=== PATIENT | male | born 1970 | race Caucasian/White ===

== ENCOUNTER → 2016-08-04 | Outpatient (CLI) | payer MEDICARE, OTHER ==
--- NOTE | 2016-08-04 15:05 | MR ---
EXAMINATION TYPE: MR angio head wo con DATE OF EXAM: 08/04/2016 2:31 PM COMPARISON: NONE HISTORY: Syncope TECHNIQUE: Time of flight images focusing on the [place] were performed without contrast. FINDINGS: The internal carotid arteries bifurcate normally into A1 and M1 segments. The anterior comm unicating artery is not identified. On source images very faint posterior communicating arteries may be present. Middle cerebral artery branches appear unremarkable. Vertebral basilar system appears normal. The posterior cerebral vasculature is unremarkable. 3-D reconstructed images performed separately by the technologist are reviewed. Rotating images are r eviewed. No suspicious aneurysms are evident. IMPRESSION: Normal MRA [place].
--- NOTE | 2016-08-04 15:31 | MR ---
EXAMINATION TYPE: MR iac wo/w con DATE OF EXAM: 08/04/2016 2:50 PM COMPARISON: MRI brain 09/15/2015 HISTORY: syncope CONTRAST: Performed utilizing intravenous MultiHance gadolinium contrast. TECHNIQUE: Multiplanar, multiecho imaging on a 3.0 Evelyn magnet is performed through the brain. Atte ntion is paid to the internal auditory canals with thin section imaging. Postcontrast imaging is per formed through the internal auditory canals. FINDINGS: Craniovertebral junction is normal. The pituitary is normal. Diffusion-weighted imaging is performed. No suspicious hyperintensity is present to suggest an acute intracranial infarct or acute ischemic area. Signal within the brain has scattered areas of hyperin tensity which are non-specific but could be related to microvascular ischemic changes. Thin section imaging is performed through the internal auditory canals and cerebellar pontine angles. No cerebellar pontine angle masses are evident. The internal auditory canals appear normal without expansion or erosion. Note is made of fluid within inferior left and right mastoid air cells. Correl ate for mastoiditis. Small air-fluid levels appear to be within the maxillary sinuses. There is mucos al thickening through ethmoid air cells and within the frontal sinuses. Correlate for sinusitis. Following contrast administration no abnormal enhancement is evident. No enhancement within the inter nal auditory canals. Note is made of soft tissue swelling over the right parietal vertex small hemorrhage and subgaleal re gion may be present. IMPRESSIONS: 1. Normal internal auditory canals. 2. Soft tissue swelling right parietal vertex. 3. Correlate for pansinusitis. Some mild bilateral mastoiditis may be present.
== END | disposition home or self-care (01) ==
LOC: RADMRIMAIN 13:45
PROVIDERS: ATTEND Psychiatry & Neurology Neurology
DX: R55 Syncope and collapse (principal)
CPT/HCPCS: 70544; 70553; A9577

== ENCOUNTER 2016-09-29 20:56 | Emergency (ER) | payer MEDICARE, OTHER ==
[2016-09-29 21:03] VITALS: TEMP 98.6
[2016-09-29] MEDS ORDERED: SODIUM CHLORIDE 0.9% 1,000 ML IV STA ×2 (21:46)
[2016-09-29] MEDS ORDERED: ONDANSETRON 4 MG/2 ML VIAL IVP STA (21:46)
[2016-09-29] MEDS ORDERED: MORPHINE SULFATE 4 MG/ML SYRINGE IV STA (21:46)
[2016-09-29] MEDS ORDERED: DIAZEPAM 5 MG/ML 2 ML SYRINGE IVP STA (21:46)
--- NOTE | 2016-09-29 21:49 | ED ---
General Adult HPI - General Chief complaint: Dizziness Stated complaint: Dizzy/Ear Pain Time Seen by Provider: 09/29/16 21:31 Source: patient, RN notes reviewed, old records reviewed Mode of arrival: wheelchair Limitations: no limitations - History of Present Illness Initial comments: This is a 45-year-old male the ER for evaluation of nonspecific complaint. Patient coming in with multiple complaints today. Patient's is complaining of all-around head spinning, dizziness and ear pain. Patient's history of heart disease, history of tumor removed. Recent start on blood pressure medication for symptoms as he thought these symptoms which include occasional syncope or possibly related to his blood pressure. Then occurred again tonight and causing patient to the emergency room. An hour and a half ago started feeling dizzy at this time no chest pain. No nausea vomiting or diarrhea no abdominal pain. No syncopal event today. No other change in medications. Patient again has been the ER and been evaluated multiple times for similar symptoms before. Patient is very anxious, stating that this is an issue has been trying to figure out he follows his blood pressure but that apparently is not the case is urinary has been taking the medication he still has same symptoms - Related Data Home Medications Medication Instructions Recorded Confirmed HYDROcodone/APAP 10-325MG [[place] 1 tab PO TID PRN 12/23/14 09/29/16 10] Propranolol [Inderal] 20 mg PO BID 05/27/15 09/29/16 Albuterol Sulfate [Proair Hfa] 1 - 2 puff INHALATION RT-Q6H PRN 06/11/15 Aspirin 81 mg PO DAILY 06/11/15 09/29/16 Atorvastatin [Lipitor] 10 mg PO DAILY 09/29/16 09/29/16 Ranitidine HCl [Zantac] 75 mg PO DAILY 09/29/16 09/29/16 oxyCODONE HCL [OxyCONTIN] 40 mg PO BID 09/29/16 09/29/16 Allergies Allergy/AdvReac Type Severity Reaction Status Date / Time ibuprofen Allergy Swelling Verified 09/29/16 21:29 Review of Systems ROS Statement: Those systems with pertinent positive or pertinent negative responses have been documented in the HPI. ROS Other: All systems not noted in ROS Statement are negative. 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, ELECTRICUTED X 2 History of Any Multi-Drug Resistant Organisms: None Reported Past Surgical History: Adenoidectomy, Cardiac Ablation, Ear Surgery, Orthopedic Surgery, Tonsillectomy Past Anesthesia/Blood Transfusion Reactions: No Reported Reaction Additional Past Anesthesia/Blood Transfusion Reaction / Comment(s): NEVER HAS HAD BLOOD TRANSFUSION Past Psychological History: Anxiety Smoking Status: Current every day smoker Past Alcohol Use History: Rare Additional Past Alcohol Use History / Comment(s): STARTED 1992 05 PPD Past Drug Use History: None Reported - Past Family History Sister(s) Family Medical History: No Reported History Mother Family Medical History: Cancer Additional Family Medical History / Comment(s): SKIN General Exam Limitations: no limitations General appearance: alert, in no apparent distress Head exam: Present: atraumatic, normocephalic, normal inspection Eye exam: Present: normal appearance, PERRL, EOMI. Absent: scleral icterus, conjunctival injection, periorbital swelling ENT exam: Present: normal exam, mucous membranes moist Neck exam: Present: normal inspection. Absent: tenderness, meningismus, lymphadenopathy Respiratory exam: Present: normal lung sounds bilaterally. Absent: respiratory distress, wheezes, rales, rhonchi, stridor Cardiovascular Exam: Present: regular rate, normal rhythm, normal heart sounds. Absent: systolic murmur, diastolic murmur, rubs, gallop, clicks GI/Abdominal exam: Present: soft, normal bowel sounds. Absent: distended, tenderness, guarding, rebound, rigid Extremities exam: Present: normal inspection, full ROM, normal capillary refill. Absent: tenderness, pedal edema, joint swelling, calf tenderness Back exam: Present: normal inspection Neurological exam: Present: alert, oriented X3, CN II-XII intact Psychiatric exam: Present: normal affect, normal mood Skin exam: Present: warm, dry, intact, normal color. Absent: rash Course Vital Signs 09/29/16 09/29/16 21:00 21:35 Temperature 98.6 F Pulse Rate 69 Pulse Rate [ 79 Sitting] Pulse Rate [ 80 Standing Radial ] Pulse Rate [ 68 Supine Radial] Respiratory 20 Rate Blood Pressure 124/78 Blood Pressure 107/78 [Right Arm Sitting] Blood Pressure 105/80 [Right Arm Standing] Blood Pressure 116/64 [Right Arm Supine] O2 Sat by Pulse 99 Oximetry - Reevaluation(s) Reevaluation #1: 09/29/16 23:24 Patient is resting comfortably, no chest pain shortness of breath. No headache. Symptoms are improved, able to ambulate without difficulty, states would like to be discharged home EKG Findings - EKG Comments: EKG Findings:: EKG shows normal sinus rhythm of 61, [place] 136, QRS 88, QTc 386 Medical Decision Making - Medical Decision Making 42 female DF for evaluation. Patient coming in for evaluation of dizziness, nonspecific dizziness, acute on chronic issue. Patient urged to decrease blood pressure medication and half, patient's blood pressure and low at this time. Heart rate In the 60s, blood pressure 80/50. Patient will be discharged home - Lab Data Result diagrams: 09/29/16 21:55 09/29/16 21:55 Lab Results 09/29/16 09/29/16 09/29/16 Range/Units 21:55 21:55 21:55 WBC 9.5 (3.8-10.6) k/uL RBC 4.78 (4.30-5.90) m/uL Hgb 15.3 (13.0-17.5) gm/dL Hct 44.6 (39.0-53.0) % MCV 93.4 (80.0-100.0) fL MCH 32.0 (25.0-35.0) pg MCHC 34.3 (31.0-37.0) g/dL RDW 11.9 (11.5-15.5) % Plt Count 172 (150-450) k/uL Neutrophils % 66 % Lymphocytes % 23 % Monocytes % 6 % Eosinophils % 3 % Basophils % 1 % Neutrophils # 6.3 (1.3-7.7) k/uL Lymphocytes # 2.2 (1.0-4.8) k/uL Monocytes # 0.5 (0-1.0) k/uL Eosinophils # 0.3 (0-0.7) k/uL Basophils # 0.1 (0-0.2) k/uL PT (9.0-12.0) sec INR (<1.1) APTT (22.0-30.0) sec Sodium 142 (137-145) mmol/L Potassium 4.2 (3.5-5.1) mmol/L Chloride 106 (98-107) mmol/L Carbon Dioxide 26 (22-30) mmol/L Anion Gap 10 mmol/L BUN 13 (9-20) mg/dL Creatinine 1.20 (0.66-1.25) mg/dL Est GFR (MDRD) Af Amer >60 (>60 ml/min/1.73 sqM) Est GFR (MDRD) Non-Af >60 (>60 ml/min/1.73 sqM) Glucose 90 (74-99) mg/dL Calcium 9.5 (8.4-10.2) mg/dL Phosphorus 3.8 (2.5-4.5) mg/dL Magnesium 2.0 (1.6-2.3) mg/dL Total Bilirubin 0.5 (0.2-1.3) mg/dL AST 24 (17-59) U/L ALT 37 (21-72) U/L Alkaline Phosphatase 65 (38-126) U/L Total Creatine Kinase 149 (55-170) U/L CK-MB (CK-2) 0.7 (0.0-2.4) ng/mL CK-MB (CK-2) Rel Index 0.5 Troponin I <0.012 (0.000-0.034) ng/mL Total Protein 7.0 (6.3-8.2) g/dL Albumin 4.5 (3.5-5.0) g/dL Urine Color Urine Appearance (Clear) Urine pH (5.0-8.0) Ur Specific [place] (1.001-1.035) Urine Protein (Negative) Urine Glucose (UA) (Negative) Urine Ketones (Negative) Urine Blood (Negative) Urine Nitrite (Negative) Urine Bilirubin (Negative) Urine Urobilinogen (<2.0) mg/dL Ur Leukocyte Esterase (Negative) 09/29/16 09/29/16 Range/Units 21:55 21:55 WBC (3.8-10.6) k/uL RBC (4.30-5.90) m/uL Hgb (13.0-17.5) gm/dL Hct (39.0-53.0) % MCV (80.0-100.0) fL MCH (25.0-35.0) pg MCHC (31.0-37.0) g/dL RDW (11.5-15.5) % Plt Count (150-450) k/uL Neutrophils % % Lymphocytes % % Monocytes % % Eosinophils % % Basophils % % Neutrophils # (1.3-7.7) k/uL Lymphocytes # (1.0-4.8) k/uL Monocytes # (0-1.0) k/uL Eosinophils # (0-0.7) k/uL Basophils # (0-0.2) k/uL PT 11.3 (9.0-12.0) sec INR 1.1 (<1.1) APTT 26.4 (22.0-30.0) sec Sodium (137-145) mmol/L Potassium (3.5-5.1) mmol/L Chloride (98-107) mmol/L Carbon Dioxide (22-30) mmol/L Anion Gap mmol/L BUN (9-20) mg/dL Creatinine (0.66-1.25) mg/dL Est GFR (MDRD) Af Amer (>60 ml/min/1.73 sqM) Est GFR (MDRD) Non-Af (>60 ml/min/1.73 sqM) Glucose (74-99) mg/dL Calcium (8.4-10.2) mg/dL Phosphorus (2.5-4.5) mg/dL Magnesium (1.6-2.3) mg/dL Total Bilirubin (0.2-1.3) mg/dL AST (17-59) U/L ALT (21-72) U/L Alkaline Phosphatase (38-126) U/L Total Creatine Kinase (55-170) U/L CK-MB (CK-2) (0.0-2.4) ng/mL CK-MB (CK-2) Rel Index Troponin I (0.000-0.034) ng/mL Total Protein (6.3-8.2) g/dL Albumin (3.5-5.0) g/dL Urine Color Colorless Urine Appearance Clear (Clear) Urine pH 6.0 (5.0-8.0) Ur Specific [place] 1.003 (1.001-1.035) Urine Protein Negative (Negative) Urine Glucose (UA) Negative (Negative) Urine Ketones Negative (Negative) Urine Blood Negative (Negative) Urine Nitrite Negative (Negative) Urine Bilirubin Negative (Negative) Urine Urobilinogen <2.0 (<2.0) mg/dL Ur Leukocyte Esterase Negative (Negative) Disposition Clinical Impression: Dehydration, Dizziness Disposition: HOME SELF-CARE Condition: Good Instructions: Dizziness (ED) Referrals: Edgardo Garcia MD [Primary Care Provider] - 1-2 days
[2016-09-29 22:19] LABS: Basophils # (A) 0.1 k/uL (0-0.2); Basophils % (A) 1 %; CH 32.5; Eosinophils # (A) 0.3 k/uL (0-0.7); Eosinophils % (A) 3 %; HCT 44.6 % (39.0-53.0); HDW 2.44; HGB 15.3 gm/dL (13.0-17.5); Luc % (Auto) 2; Lymphocytes # (A) 2.2 k/uL (1.0-4.8); Lymphocytes % (A) 23 %; MCHC 34.3 g/dL (31.0-37.0); MCV 93.4 fL (80.0-100.0); Mean Platelet Volume 6.5; Monocytes # (A) 0.5 k/uL (0-1.0); Monocytes % (A) 6 %; Neutrophils # (A) 6.3 k/uL (1.3-7.7); Neutrophils % (A) 66 %; RBC 4.78 m/uL (4.30-5.90); RDW 11.9 % (11.5-15.5); WBC 9.5 k/uL (3.8-10.6); WBC (Perox) 9.14
[2016-09-29 22:22] LABS: Appearance,Urine Clear (Clear); Bilirubin,Urine Negative (Negative); Glucose,Urine (UA) Negative (Negative); Ketones,Urine Negative (Negative); Leukocyte Esterase,Urine Negative (Negative); Nitrite,Urine Negative (Negative); Protein,Urine Negative (Negative); Specific Gravity,Urine 1.003 (1.001-1.035); UA Billing (MACRO vs. MICRO) CHEM; Urobilinogen,Urine <2.0 mg/dL (<2.0)
[2016-09-29 22:25] LABS: INR 1.1 (<1.1); Partial Thromboplastin Time 26.4 sec (22.0-30.0); Prothrombin Time 11.3 sec (9.0-12.0)
[2016-09-29 22:38] LABS: ALT 37 U/L (21-72); AST 24 U/L (17-59); Alkaline Phosphatase 65 U/L (38-126); Anion Gap 10 mmol/L; Blood Urea Nitrogen 13 mg/dL (9-20); Calcium 9.5 mg/dL (8.4-10.2); Carbon Dioxide 26 mmol/L (22-30); Chloride 106 mmol/L (98-107); Glucose 90 mg/dL (74-99); Non-African American GFR(MDRD) >60 (>60 ml/min/1.73 sqM); Phosphorous 3.8 mg/dL (2.5-4.5); Potassium 4.2 mmol/L (3.5-5.1); Sodium 142 mmol/L (137-145); Total Bilirubin 0.5 mg/dL (0.2-1.3)
[2016-09-29 22:51] LABS: Creatine Kinase 149 U/L (55-170)
[2016-09-29 23:04] LABS: Creatine Kinase MB 0.7 ng/mL (0.0-2.4); Troponin I <0.012 ng/mL (0.000-0.034)
[2016-09-29 23:49] VITALS: BP 113/71; PULSE 72; RESP 18
== END 2016-09-29 23:49 | disposition home or self-care (01) ==
LOC: EC 20:56
DX: E86.0 Dehydration (principal); R42 Dizziness and giddiness; H92.09 Otalgia, unspecified ear; F41.9 Anxiety disorder, unspecified; I95.9 Hypotension, unspecified; E78.5 Hyperlipidemia, unspecified; M19.90 Unspecified osteoarthritis, unspecified site; F17.200 Nicotine dependence, unspecified, uncomplicated; Z79.891 Long term (current) use of opiate analgesic; Z79.82 Long term (current) use of aspirin; Z79.899 Other long term (current) drug therapy
CPT/HCPCS: 36415; 93005; 80053; 82550; 82553; 83735; 84100; 84484; 85025; 85610; 85730; 81003; 99284; 96374; 96375 ×2; 96361 ×2; J2270; J3360; J2405

== ENCOUNTER → 2016-10-27 | Outpatient (CLI) | payer MEDICARE, OTHER ==
--- NOTE | 2016-10-27 20:17 | CT ---
EXAMINATION TYPE: CT sinus wo con DATE OF EXAM: 10/27/2016 COMPARISON: NONE HISTORY: Dizziness. CT DLP: 680.1 mGycm. Automated Exposure Control for Dose Reduction was Utilized. TECHNIQUE: CT scan of the sinuses is performed without contrast, axial images are obtained, coronal r eformatted images are also reviewed. FINDINGS: There is mild mucosal thickening in the ethmoid air cells. There is no sign of blowout frac ture. Orbital margins are intact. Maxilla is intact. There is bilateral patency of the ostiomeatal co mplex. Nasal septum deviates to the left side. There is mild mucosal thickening in the frontal sinuse s. Globes are symmetric. IMPRESSION There is mild ethmoid and frontal sinusitis. There is a scalp lipoma noted in the right parietal vera on..
== END | disposition home or self-care (01) ==
LOC: RADCTMAIN 19:30
PROVIDERS: ATTEND Otolaryngology
DX: J32.1 Chronic frontal sinusitis (principal); J32.2 Chronic ethmoidal sinusitis
CPT/HCPCS: 70486

== ENCOUNTER 2017-02-01 19:24 | Emergency (ER) | payer MEDICARE, OTHER ==
[2017-02-01 19:34] VITALS: RESP 18
[2017-02-01] MEDS ORDERED: SODIUM CHLORIDE 0.9% 2,000 ML IV STA (20:21)
--- NOTE | 2017-02-01 20:36 | ED ---
Abdominal Pain HPI - General Chief Complaint: Abdominal Pain Stated Complaint: Abdominal pain/chest congestion/headache Time Seen by Provider: 02/01/17 20:00 Source: patient Mode of arrival: ambulatory Limitations: no limitations - History of Present Illness Initial Comments: Patient presents with epigastric and right upper quadrant abdominal pain. Patient states symptoms have been ongoing for "months". Patient states she sees primary care physician Dr. Xie, but he has not followed up with him recently regarding the symptoms. Patient does note that he saw a family practice physician that his mother referred him to a Family physician, Dr. Jl Vora, today for the same symptoms. Patient states she had blood work done, and an ultrasound ordered for next week, however patient states he cannot wait until next week for results. He states his brother was recently diagnosed with pancreatic CA, and states he has the same symptoms. Patient states she's been having diarrhea for 7 months. States he also has mild shortness of breath & lightheadedness. States urine is sometimes dark, sometimes clear, no other urinary symptoms. Patient states she's had mildly decreased appetite. Patient states she is on blood pressure medications, propranolol. Denies history of abdominal surgeries. Denies nausea, vomiting, fevers, chills. MD Complaint: abdominal pain Location: RUQ, epigastric Radiation: none Migration to: no migration Severity: moderate Quality: fullness Consistency: intermittent Improves With: nothing Worsens With: nothing Associated Symptoms: diarrhea - Related Data Home Medications Medication Instructions Recorded Confirmed HYDROcodone/APAP 10-325MG [[place] 1 tab PO Q6H PRN 12/23/14 02/01/17 10] Atorvastatin [Lipitor] 10 mg PO DAILY 09/29/16 02/01/17 Ranitidine HCl [Zantac] 75 mg PO DAILY 09/29/16 02/01/17 Propranolol [Inderal] 20 mg PO BID 02/01/17 02/01/17 oxyCODONE HCL [OxyCONTIN] 20 mg PO Q12HR 02/01/17 02/01/17 Allergies Allergy/AdvReac Type Severity Reaction Status Date / Time ibuprofen Allergy Swelling, Verified 02/01/17 19:42 ITCHING OF THROAT AND DIFFICULTY SWALLOWING Review of Systems ROS Statement: Those systems with pertinent positive or pertinent negative responses have been documented in the HPI. ROS Other: All systems not noted in ROS Statement are negative. Constitutional: Denies: fever, chills, weakness Eyes: Denies: vision change ENT: Denies: ear pain, throat pain, congestion Respiratory: Reports: dyspnea. Denies: cough, wheezes Cardiovascular: Denies: chest pain, palpitations, dyspnea on exertion, edema, syncope Endocrine: Denies: fatigue Gastrointestinal: Reports: abdominal pain, diarrhea. 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 LT KNEE SX X 3. LT ANKLE SX. TUBE INSERTED LT EAR Past Anesthesia/Blood Transfusion Reactions: No Reported Reaction Additional Past Anesthesia/Blood Transfusion Reaction / Comment(s): NEVER HAS HAD BLOOD TRANSFUSION Past Psychological History: Anxiety Smoking Status: Current every day smoker - Past Family History Sister(s) Family Medical History: No Reported History Mother Family Medical History: Cancer Additional Family Medical History / Comment(s): SKIN General Exam - General Exam Comments Initial Comments: Ambulatory to the bathroom without difficulty. Sitting on side of bed. Patient appears moderately anxious. Patient tearful during exam. However he does not appear in pain. Not ill appearing Limitations: no limitations General appearance: alert, anxious Head exam: Present: atraumatic, normocephalic Eye exam: Present: normal appearance, PERRL, EOMI ENT exam: Present: mucous membranes moist Neck exam: Present: normal inspection. Absent: tenderness Respiratory exam: Present: normal lung sounds bilaterally. Absent: respiratory distress, wheezes, rales, rhonchi, stridor Cardiovascular Exam: Present: regular rate, normal rhythm GI/Abdominal exam: Present: soft, other (Minimal epigastric and right upper quadrant tenderness to palpation). Absent: distended, guarding, rebound, rigid , mass Extremities exam: Present: normal inspection Neurological exam: Present: alert, oriented X3 Psychiatric exam: Present: anxious, other (Tearful) Skin exam: Present: warm, dry, intact, normal color. Absent: rash Course Vital Signs 02/01/17 02/01/17 02/01/17 19:31 20:50 21:48 Temperature 98.5 F 97.6 F Pulse Rate 63 69 Respiratory 18 18 Rate Blood Pressure 141/79 124/67 O2 Sat by Pulse 99 100 Oximetry Medical Decision Making - Medical Decision Making Patient declines pain medications initially. LFTs and other lab tests normal. Chest x-ray and KUB show no acute process. I was notified by the RN the patient left and signed out AMA due to a family emergency". Patient was gone at the time I was notified. Patient did not express any desire to leave to me prior to signing out AMA. Did not express any concerns or complaints regarding his treatment. Patient left prior to her ultrasound being completed. Patient left prior to being updated with his results. Patient was discharged AMA. - Lab Data Result diagrams: 02/01/17 20:42 02/01/17 20:42 Lab Results 02/01/17 02/01/17 02/01/17 Range/Units 20:42 20:42 20:42 WBC 8.0 (3.8-10.6) k/uL RBC 4.87 (4.30-5.90) m/uL Hgb 15.5 (13.0-17.5) gm/dL Hct 46.9 (39.0-53.0) % MCV 96.4 (80.0-100.0) fL MCH 31.9 (25.0-35.0) pg MCHC 33.1 (31.0-37.0) g/dL RDW 13.4 (11.5-15.5) % Plt Count 177 (150-450) k/uL Neutrophils % 63 % Lymphocytes % 25 % Monocytes % 6 % Eosinophils % 3 % Basophils % 0 % Neutrophils # 5.0 (1.3-7.7) k/uL Lymphocytes # 2.0 (1.0-4.8) k/uL Monocytes # 0.5 (0-1.0) k/uL Eosinophils # 0.2 (0-0.7) k/uL Basophils # 0.0 (0-0.2) k/uL Sodium 142 (137-145) mmol/L Potassium 3.7 (3.5-5.1) mmol/L Chloride 104 (98-107) mmol/L Carbon Dioxide 26 (22-30) mmol/L Anion Gap 12 mmol/L BUN 13 (9-20) mg/dL Creatinine 0.95 (0.66-1.25) mg/dL Est GFR (MDRD) Af Amer >60 (>60 ml/min/1.73 sqM) Est GFR (MDRD) Non-Af >60 (>60 ml/min/1.73 sqM) Glucose 96 (74-99) mg/dL Calcium 9.4 (8.4-10.2) mg/dL Total Bilirubin 0.5 (0.2-1.3) mg/dL AST 24 (17-59) U/L ALT 36 (21-72) U/L Alkaline Phosphatase 79 (38-126) U/L Total Protein 7.1 (6.3-8.2) g/dL Albumin 4.4 (3.5-5.0) g/dL Lipase 59 (23-300) U/L Urine Color Colorless Urine Appearance Clear (Clear) Urine pH 5.5 (5.0-8.0) Ur Specific [place] 1.002 (1.001-1.035) Urine Protein Negative (Negative) Urine Glucose (UA) Negative (Negative) Urine Ketones Negative (Negative) Urine Blood Negative (Negative) Urine Nitrite Negative (Negative) Urine Bilirubin Negative (Negative) Urine Urobilinogen <2.0 (<2.0) mg/dL Ur Leukocyte Esterase Negative (Negative) Disposition Clinical Impression: Abdominal pain Disposition: Left Against Medical Advice Referrals: Edgardo Garcia MD [Primary Care Provider] - 1-2 days
[2017-02-01 20:52] VITALS: TEMP 97.6
[2017-02-01 20:55] LABS: Basophils % (A) 0 %; CH 33.1; CHCM 34.4; Eosinophils # (A) 0.2 k/uL (0-0.7); Eosinophils % (A) 3 %; HCT 46.9 % (39.0-53.0); HDW 2.38; HGB 15.5 gm/dL (13.0-17.5); Luc # (Auto) 0.15; Luc % (Auto) 2; Lymphocytes % (A) 25 %; MCH 31.9 pg (25.0-35.0); MCHC 33.1 g/dL (31.0-37.0); MCV 96.4 fL (80.0-100.0); Mean Platelet Volume 6.9; Monocytes # (A) 0.5 k/uL (0-1.0); Monocytes % (A) 6 %; Neutrophils % (A) 63 %; RBC 4.87 m/uL (4.30-5.90); RDW 13.4 % (11.5-15.5)
[2017-02-01 20:56] LABS: Appearance,Urine Clear (Clear); Bilirubin,Urine Negative (Negative); Glucose,Urine (UA) Negative (Negative); Ketones,Urine Negative (Negative); Leukocyte Esterase,Urine Negative (Negative); Nitrite,Urine Negative (Negative); PH, Urine 5.5 (5.0-8.0); Protein,Urine Negative (Negative); Specific Gravity,Urine 1.002 (1.001-1.035); UA Billing (MACRO vs. MICRO) CHEM; Urobilinogen,Urine <2.0 mg/dL (<2.0)
[2017-02-01 21:04] LABS: ALT 36 U/L (21-72); AST 24 U/L (17-59); Alkaline Phosphatase 79 U/L (38-126); Anion Gap 12 mmol/L; Blood Urea Nitrogen 13 mg/dL (9-20); Calcium 9.4 mg/dL (8.4-10.2); Carbon Dioxide 26 mmol/L (22-30); Chloride 104 mmol/L (98-107); Glucose 96 mg/dL (74-99); Non-African American GFR(MDRD) >60 (>60 ml/min/1.73 sqM); Potassium 3.7 mmol/L (3.5-5.1); Sodium 142 mmol/L (137-145); Total Bilirubin 0.5 mg/dL (0.2-1.3); Total Protein 7.1 g/dL (6.3-8.2)
--- NOTE | 2017-02-01 21:36 | XR ---
EXAMINATION TYPE: XR chest 2V DATE OF EXAM: 02/01/2017 COMPARISON: Chest x-ray May 17, 2015. HISTORY: Shortness of breath. TECHNIQUE: Frontal and lateral views of the chest are obtained. FINDINGS: There is no focal air space opacity, pleural effusion, or pneumothorax seen. The cardiac silhouette size is within normal limits. The osseous structures are intact. IMPRESSION: No acute cardiopulmonary process. No significant change from prior.
--- NOTE | 2017-02-01 21:37 | XR ---
EXAMINATION TYPE: XR KUB DATE OF EXAM: 02/01/2017 9:04 PM CLINICAL HISTORY: Right upper quadrant abdominal pain. TECHNIQUE: Two Upright KUB images of the abdomen are obtained. COMPARISON: CT abdomen May 05, 2015. FINDINGS: Scattered gas is seen in non-distended stomach and small bowel loops. Gas and fecal materia l is seen in non-distended colon. There is no visceromegaly, pneumoperitoneum, or abnormal calcificat ion appreciated. The lung bases are clear and the osseous structures are intact. IMPRESSION: Overall nonobstructive bowel gas pattern.
[2017-02-01 21:49] VITALS: BP 124/67; PULSE 69
== END 2017-02-01 22:01 | disposition left against medical advice (07) ==
LOC: EC 19:24
DX: R10.13 Epigastric pain (principal); R10.11 Right upper quadrant pain; R19.7 Diarrhea, unspecified; R06.02 Shortness of breath; R42 Dizziness and giddiness; I10 Essential (primary) hypertension; E78.5 Hyperlipidemia, unspecified; F17.200 Nicotine dependence, unspecified, uncomplicated; Z85.828 Personal history of other malignant neoplasm of skin; Z79.899 Other long term (current) drug therapy; Z88.6 Allergy status to analgesic agent
CPT/HCPCS: 36415; 71020; 74000; 80053; 81003; 83690; 85025; 93005; 96360; 99284

== ENCOUNTER → 2017-04-28 | Outpatient (CLI) | payer MEDICARE, OTHER ==
[2017-04-28 19:09] LABS: Blood Urea Nitrogen 21 mg/dL (9-20); Non-African American GFR(MDRD) >60 (>60 ml/min/1.73 sqM)
--- NOTE | 2017-04-28 23:00 | MR ---
EXAMINATION TYPE: MR brain wo/w con DATE OF EXAM: 04/28/2017 COMPARISON: Prior MRI brain September 15, 2015. HISTORY: History of right-sided ear tumor with resection presents with headaches, lightheadedness, an d forgetfulness. TECHNIQUE: Multiplanar, multisequence images of the brain and brainstem is performed without and with IV contras t, utilizing 10 mL intravenous Gadavist . FINDINGS: Diffusion weighted images demonstrate no evidence of a recent infarct or other diffusion ab normality. There is no extra-axial fluid collection or significant white matter signal abnormality. The ventricular system and cisternal spaces are normal in size and appearance. The brain volume is age appropriate. Midline structures demonstrate normal morphology. The craniocervical junction appears within normal limits. Post contrast images demonstrate no abnormal enhancement. The dural venous sinuses appear pa tent. There is mild mucosal thickening in ethmoid sinuses significantly improved from prior. Globes a re intact. Increased fluid signal bilateral mastoid air cells remains present. No significant change from prior MRI. There is stable high right frontal scalp lesion or lipoma IMPRESSION: Interval improvement in paranasal sinus disease. Persistent fluid signal bilateral mastoi d air cells, clinical correlation to exclude mastoiditis. Altered draining mechanics is favored. Scal p lipoma redemonstrated.
== END | disposition home or self-care (01) ==
LOC: RADMRIMAIN 18:32
PROVIDERS: ATTEND Psychiatry & Neurology Neurology
DX: D49.6 Neoplasm of unspecified behavior of brain (principal); R51 Headache
CPT/HCPCS: 82565; 84520; 70553; 36415; A9581

== ENCOUNTER 2017-05-01 10:49 | Emergency (ER) | payer MEDICARE, OTHER ==
[2017-05-01] MEDS ORDERED: SODIUM CHLORIDE 0.9% 1,000 ML IV STA (11:41)
[2017-05-01] MEDS ORDERED: LORazepam 2 MG/ML INJ IV STA (11:41)
[2017-05-01] MEDS ORDERED: MECLIZINE 12.5 MG TAB PO STA (11:41)
[2017-05-01 12:13] LABS: Basophils % (A) 1 %; Eosinophils # (A) 0.2 k/uL (0-0.7); Eosinophils % (A) 3 %; HCT 50.3 % (39.0-53.0); HGB 16.5 gm/dL (13.0-17.5); Lymphocytes # (A) 1.5 k/uL (1.0-4.8); Lymphocytes % (A) 22 %; MCH 32.3 pg (25.0-35.0); MCHC 32.9 g/dL (31.0-37.0); MCV 98.4 fL (80.0-100.0); Mean Platelet Volume 7.1; Monocytes # (A) 0.4 k/uL (0-1.0); Monocytes % (A) 5 %; Neutrophils # (A) 4.9 k/uL (1.3-7.7); Neutrophils % (A) 69 %; Platelet Count 157 k/uL (150-450); RBC 5.11 m/uL (4.30-5.90); RDW 13.9 % (11.5-15.5); WBC 7.1 k/uL (3.8-10.6)
[2017-05-01 12:24] VITALS: RESP 18
[2017-05-01 12:26] LABS: ALT 64 U/L (21-72); AST 38 U/L (17-59); Albumin 4.1 g/dL (3.5-5.0); Alkaline Phosphatase 69 U/L (38-126); Anion Gap 7 mmol/L; Blood Urea Nitrogen 14 mg/dL (9-20); Calcium 9.3 mg/dL (8.4-10.2); Carbon Dioxide 28 mmol/L (22-30); Chloride 108 mmol/L (98-107); Glucose 104 mg/dL (74-99); Potassium 4.2 mmol/L (3.5-5.1); Sodium 143 mmol/L (137-145); Total Bilirubin 0.4 mg/dL (0.2-1.3); Total Protein 6.8 g/dL (6.3-8.2)
[2017-05-01 12:46] LABS: Appearance,Urine Clear (Clear); Bilirubin,Urine Negative (Negative); Blood,Urine Negative (Negative); Color,Urine Yellow; Glucose,Urine (UA) Negative (Negative); Ketones,Urine Negative (Negative); Leukocyte Esterase,Urine Negative (Negative); Nitrite,Urine Negative (Negative); Protein,Urine Trace (Negative); Specific Gravity,Urine 1.018 (1.001-1.035); Urobilinogen,Urine <2.0 mg/dL (<2.0)
--- NOTE | 2017-05-01 12:54 | XR ---
EXAMINATION TYPE: XR chest 2V DATE OF EXAM: 05/01/2017 COMPARISON: 02/01/2017 HISTORY: Short of breath TECHNIQUE: Frontal and lateral views of the chest are obtained. FINDINGS: Heart and mediastinum are normal. Lungs are clear. Diaphragm is normal. Bony thorax is int act. IMPRESSION: Normal chest
--- NOTE | 2017-05-01 12:55 | XR ---
EXAMINATION TYPE: XR soft tissue neck DATE OF EXAM: 05/01/2017 COMPARISON: NONE HISTORY: Lump in the throat TECHNIQUE: 2 views FINDINGS: Epiglottis is normal. Subglottic trachea appears normal. There is no sign of a foreign body . Prevertebral soft tissues appear normal. IMPRESSION: Negative cervical soft tissue exam.
[2017-05-01 13:05] LABS: Amphetamine Screen,Urine Not Detected (NotDetected); Barbiturate Screen,Urine Not Detected (NotDetected); Benzodiazepines Screen,Urine Not Detected (NotDetected); Cocaine Screen,Urine Not Detected (NotDetected); Methadone Screen, Urine Not Detected (NotDetected); Opiate Screen,Urine Detected (NotDetected); Oxycodone Screen, Urine Detected (NotDetected); Phencyclidine Screen,Urine Not Detected (NotDetected); Tricyclic Antidepressant,Urine Not Detected (NotDetected); Urn Cannabinoid Scrn Not Detected (NotDetected)
--- NOTE | 2017-05-01 13:16 | ED ---
Dizziness HPI - General Chief Complaint: Dizziness Stated Complaint: Vertigo Time Seen by Provider: 05/01/17 11:10 Source: patient, EMS, RN notes reviewed, old records reviewed Mode of arrival: EMS Limitations: no limitations - History of Present Illness Initial Comments: Is a 46-year-old male presents via EMS chief complaint of lightheadedness, dizziness, and feeling his throat was closing. He reports this occurred today was playing to give this morning. He states that he's been to multiple doctors , neurologist and ENT to the [facility] having similar symptoms. He reports that they've occurring more frequently over the past 6 months. He reports that he has been getting frequent dizzy spells. Patient states that he has no specific chest pain or shortness breath this time. Denies any nausea or vomiting or abdominal pain. - Related Data Home Medications Medication Instructions Recorded Confirmed HYDROcodone/APAP 10-325MG [[place] 1 tab PO Q6H PRN 12/23/14 05/01/17 10] Ranitidine HCl [Zantac] 75 mg PO DAILY 09/29/16 05/01/17 Propranolol [Inderal] 20 mg PO DAILY 02/01/17 05/01/17 Albuterol Inhaler [Ventolin Hfa 1 puff INHALATION BID PRN 03/11/17 05/01/17 Inhaler] Aspirin [Adult Low Dose Aspirin EC] 81 mg PO DAILY PRN 03/11/17 05/01/17 Atorvastatin [Lipitor] 20 mg PO DAILY 03/11/17 05/01/17 oxyCODONE HCL [OxyCONTIN] 30 mg PO Q12H 03/11/17 05/01/17 Previous Rx's Medication Instructions Recorded Meclizine [Antivert] 25 mg PO TID #15 tab 05/01/17 Allergies Allergy/AdvReac Type Severity Reaction Status Date / Time ibuprofen Allergy Swelling, Verified 05/01/17 10:58 ITCHING OF THROAT AND DIFFICULTY SWALLOWING Review of Systems ROS Statement: Those systems with pertinent positive or pertinent negative responses have been documented in the HPI. ROS Other: All systems not noted in ROS Statement are negative. 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 Last Myocardial Infarction Date:: 1994 History of Any Multi-Drug Resistant Organisms: None Reported Past Surgical History: Adenoidectomy, Cardiac Ablation, Ear Surgery, Orthopedic Surgery, Tonsillectomy Additional Past Surgical History / Comment(s): TUMOR REMOED FROM RT EAR, LT KNEE surgery X 3, tubes in both ears, oral surgery Past Anesthesia/Blood Transfusion Reactions: No Reported Reaction Additional Past Anesthesia/Blood Transfusion Reaction / Comment(s): NEVER HAS HAD BLOOD TRANSFUSION Past Psychological History: Depression Smoking Status: Current every day smoker Past Alcohol Use History: Daily Past Drug Use History: Marijuana - Past Family History Sister(s) Family Medical History: No Reported History Mother Family Medical History: Cancer Additional Family Medical History / Comment(s): SKIN Brother(s) Family Medical History: Cancer, Pulmonary Embolus Additional Family Medical History / Comment(s): pancreas General Exam - General Exam Comments Initial Comments: Is a 46-year-old male. No distress. Limitations: no limitations General appearance: alert, in no apparent distress Head exam: Present: atraumatic, normocephalic, normal inspection Eye exam: Present: normal appearance, PERRL, EOMI. Absent: scleral icterus, conjunctival injection, periorbital swelling ENT exam: Present: normal exam, mucous membranes moist Neck exam: Present: normal inspection. Absent: tenderness, meningismus, lymphadenopathy Respiratory exam: Present: normal lung sounds bilaterally. Absent: respiratory distress, wheezes, rales, rhonchi, stridor Cardiovascular Exam: Present: regular rate, normal rhythm, normal heart sounds. Absent: systolic murmur, diastolic murmur, rubs, gallop, clicks GI/Abdominal exam: Present: soft, normal bowel sounds. Absent: distended, tenderness, guarding, rebound, rigid Extremities exam: Present: normal inspection, full ROM, normal capillary refill. Absent: tenderness, pedal edema, joint swelling, calf tenderness Back exam: Present: normal inspection Neurological exam: Present: alert, oriented X3, CN II-XII intact Psychiatric exam: Present: normal affect, normal mood Skin exam: Present: warm, dry, intact, normal color. Absent: rash Course Vital Signs 05/01/17 05/01/17 05/01/17 10:53 10:59 12:23 Temperature 97 F L Pulse Rate 83 79 Respiratory 16 16 18 Rate Blood Pressure 134/93 127/82 O2 Sat by Pulse 96 98 Oximetry 05/01/17 05/01/17 05/01/17 13:00 13:48 14:40 Temperature 97.3 F L Pulse Rate 70 66 Respiratory 18 18 Rate Blood Pressure 133/78 120/82 O2 Sat by Pulse 98 98 Oximetry EKG Findings - EKG Comments: EKG Findings:: EKG is sinus rhythm, ventricular rate of 64 beats were minute. Verbal 136. QRS is 80 msx. QT QTc is 398/410 seconds. No evidence of ST elevation or atrial or ventricular. Medical Decision Making - Medical Decision Making This is a 46 year old male presents with anxiety, dizziness, and throat discomfort for one day. Symptoms started this morning while playing video games at home. He has had dizziness episodes frequently over the past 6 months, and is seeing neurologist, PCP, and ENT. Patient has had MRI 2 days ago and not have results. Patient MRI shows some fluid within bilateral mastoid area. Patient has no acute tenderness at this time. Patient has no erythema near mastoid. Labwork was reviewed and normal, EKG is normal. Patient CXR was normal. Dsicussed finding of MRI. Discussed with Dr. Alejo. Dsicussed not concerned for acute infeciton and that patient needs admission at this time. Discussed that patient should follow up with ENT and neuro. Discussed return to ED if any alarming signs or symptos occur. Patient feels well and states wants to go home. Patient will be dsicharged with antivert. - Lab Data Result diagrams: 05/01/17 12:02 05/01/17 12:02 Lab Results 05/01/17 05/01/17 05/01/17 Range/Units 12:02 12: 12:02 WBC 7.1 (3.8-10.6) k/uL RBC 5.11 (4.30-5.90) m/uL Hgb 16.5 (13.0-17.5) gm/dL Hct 50.3 (39.0-53.0) % MCV 98.4 (80.0-100.0) fL MCH 32.3 (25.0-35.0) pg MCHC 32.9 (31.0-37.0) g/dL RDW 13.9 (11.5-15.5) % Plt Count 157 (150-450) k/uL Neutrophils % 69 % Lymphocytes % 22 % Monocytes % 5 % Eosinophils % 3 % Basophils % 1 % Neutrophils # 4.9 (1.3-7.7) k/uL Lymphocytes # 1.5 (1.0-4.8) k/uL Monocytes # 0.4 (0-1.0) k/uL Eosinophils # 0.2 (0-0.7) k/uL Basophils # 0.0 (0-0.2) k/uL Sodium 143 (137-145) mmol/L Potassium 4.2 (3.5-5.1) mmol/L Chloride 108 H (98-107) mmol/L Carbon Dioxide 28 (22-30) mmol/L Anion Gap 7 mmol/L BUN 14 (9-20) mg/dL Creatinine 1.00 (0.66-1.25) mg/dL Est GFR (MDRD) Af Amer >60 (>60 ml/min/1.73 sqM) Est GFR (MDRD) Non-Af >60 (>60 ml/min/1.73 sqM) Glucose 104 H (74-99) mg/dL Calcium 9.3 (8.4-10.2) mg/dL Total Bilirubin 0.4 (0.2-1.3) mg/dL AST 38 (17-59) U/L ALT 64 (21-72) U/L Alkaline Phosphatase 69 (38-126) U/L Troponin I <0.012 (0.000-0.034) ng/mL Total Protein 6.8 (6.3-8.2) g/dL Albumin 4.1 (3.5-5.0) g/dL Urine Color Urine Appearance (Clear) Urine pH (5.0-8.0) Ur Specific [place] (1.001-1.035) Urine Protein (Negative) Urine Glucose (UA) (Negative) Urine Ketones (Negative) Urine Blood (Negative) Urine Nitrite (Negative) Urine Bilirubin (Negative) Urine Urobilinogen (<2.0) mg/dL Ur Leukocyte Esterase (Negative) Urine Opiates Screen (NotDetected) Ur Oxycodone Screen (NotDetected) Urine Methadone Screen (NotDetected) Ur Propoxyphene Screen (NotDetected) Ur Barbiturates Screen (NotDetected) U Tricyclic Antidepress (NotDetected) Ur Phencyclidine Scrn (NotDetected) Ur Amphetamines Screen (NotDetected) U Methamphetamines Scrn (NotDetected) U Benzodiazepines Scrn (NotDetected) Urine Cocaine Screen (NotDetected) U Marijuana (THC) Screen (NotDetected) 05/01/17 Range/Units 12:25 WBC (3.8-10.6) k/uL RBC (4.30-5.90) m/uL Hgb (13.0-17.5) gm/dL Hct (39.0-53.0) % MCV (80.0-100.0) fL MCH (25.0-35.0) pg MCHC (31.0-37.0) g/dL RDW (11.5-15.5) % Plt Count (150-450) k/uL Neutrophils % % Lymphocytes % % Monocytes % % Eosinophils % % Basophils % % Neutrophils # (1.3-7.7) k/uL Lymphocytes # (1.0-4.8) k/uL Monocytes # (0-1.0) k/uL Eosinophils # (0-0.7) k/uL Basophils # (0-0.2) k/uL Sodium (137-145) mmol/L Potassium (3.5-5.1) mmol/L Chloride (98-107) mmol/L Carbon Dioxide (22-30) mmol/L Anion Gap mmol/L BUN (9-20) mg/dL Creatinine (0.66-1.25) mg/dL Est GFR (MDRD) Af Amer (>60 ml/min/1.73 sqM) Est GFR (MDRD) Non-Af (>60 ml/min/1.73 sqM) Glucose (74-99) mg/dL Calcium (8.4-10.2) mg/dL Total Bilirubin (0.2-1.3) mg/dL AST (17-59) U/L ALT (21-72) U/L Alkaline Phosphatase (38-126) U/L Troponin I (0.000-0.034) ng/mL Total Protein (6.3-8.2) g/dL Albumin (3.5-5.0) g/dL Urine Color Yellow Urine Appearance Clear (Clear) Urine pH 6.0 (5.0-8.0) Ur Specific [place] 1.018 (1.001-1.035) Urine Protein Trace H (Negative) Urine Glucose (UA) Negative (Negative) Urine Ketones Negative (Negative) Urine Blood Negative (Negative) Urine Nitrite Negative (Negative) Urine Bilirubin Negative (Negative) Urine Urobilinogen <2.0 (<2.0) mg/dL Ur Leukocyte Esterase Negative (Negative) Urine Opiates Screen Detected H (NotDetected) Ur Oxycodone Screen Detected H (NotDetected) Urine Methadone Screen Not Detected (NotDetected) Ur Propoxyphene Screen Not Detected (NotDetected) Ur Barbiturates Screen Not Detected (NotDetected) U Tricyclic Antidepress Not Detected (NotDetected) Ur Phencyclidine Scrn Not Detected (NotDetected) Ur Amphetamines Screen Not Detected (NotDetected) U Methamphetamines Scrn Not Detected (NotDetected) U Benzodiazepines Scrn Not Detected (NotDetected) Urine Cocaine Screen Not Detected (NotDetected) U Marijuana (THC) Screen Not Detected (NotDetected) - Radiology Data Radiology results: report reviewed CXR was reviewed and normal. Disposition Clinical Impression: Dizziness Disposition: HOME SELF-CARE Condition: Good Instructions: Dizziness (ED) Additional Instructions: Patient is to take Antivert as prescribed. Follow-up with primary care provider. Return to emergency department if any alarming signs or symptoms occur. Patient is to increase her fluid intake. Patient is a drink water flavored water versus Needed drinks. Prescriptions: Meclizine [Antivert] 25 mg PO TID #15 tab Referrals: Edgardo Garcia MD [Primary Care Provider] - 1-2 days Wenceslao Mast MD [STAFF PHYSICIAN] - 1-2 days Time of Disposition: 14:24
[2017-05-01 13:49] VITALS: BP 120/82; PULSE 66
[2017-05-01 14:41] VITALS: TEMP 97.3
== END 2017-05-01 14:40 | disposition home or self-care (01) ==
LOC: EC 10:49
DX: R42 Dizziness and giddiness (principal); E78.5 Hyperlipidemia, unspecified; K21.9 Gastro-esophageal reflux disease without esophagitis; I10 Essential (primary) hypertension; M19.90 Unspecified osteoarthritis, unspecified site; F17.200 Nicotine dependence, unspecified, uncomplicated; Z85.828 Personal history of other malignant neoplasm of skin; Z88.6 Allergy status to analgesic agent; Z79.891 Long term (current) use of opiate analgesic; Z79.82 Long term (current) use of aspirin; Z79.899 Other long term (current) drug therapy
CPT/HCPCS: 36415; 93005; 80053; 84484; 85025; 81003; 80306; 70360; 71020; 99285; 96374; 96361; J2060

== ENCOUNTER 2019-01-16 23:37 | Emergency (ER) | payer MEDICARE, OTHER ==
[2019-01-16 23:51] VITALS: RESP 18
--- NOTE | 2019-01-17 00:12 | ED ---
Chest Pain HPI - General Chief Complaint: Chest Pain Stated Complaint: Chest Pain Time Seen by Provider: 01/16/19 23:42 Source: EMS Mode of arrival: EMS Limitations: no limitations - History of Present Illness MD Complaint: chest pain Onset/Timin -: month(s) Onset: during rest Pain Location: substernal Pain Radiation: none Severity: moderate Quality: heaviness Consistency: constant Improves With: nothing Worsens With: nothing Treatments Prior to Arrival: none - Related Data Home Medications Medication Instructions Recorded Confirmed HYDROcodone/APAP 10-325MG [[place] 1 tab PO Q6H PRN 12/23/14 05/01/17 10] Ranitidine HCl [Zantac] 75 mg PO DAILY 09/29/16 05/01/17 Propranolol [Inderal] 20 mg PO DAILY 02/01/17 05/01/17 Albuterol Inhaler [Ventolin Hfa 1 puff INHALATION BID PRN 03/11/17 05/01/17 Inhaler] Aspirin [Adult Low Dose Aspirin EC] 81 mg PO DAILY PRN 03/11/17 05/01/17 Atorvastatin [Lipitor] 20 mg PO DAILY 03/11/17 05/01/17 oxyCODONE HCL [OxyCONTIN] 30 mg PO Q12H 03/11/17 05/01/17 Previous Rx's Medication Instructions Recorded Meclizine [Antivert] 25 mg PO TID #15 tab 05/01/17 Allergies Allergy/AdvReac Type Severity Reaction Status Date / Time ibuprofen Allergy Swelling, Verified 05/01/17 10:58 ITCHING OF THROAT AND DIFFICULTY SWALLOWING Review of Systems ROS Statement: Those systems with pertinent positive or pertinent negative responses have been documented in the HPI. ROS Other: All systems not noted in ROS Statement are negative. Constitutional: Denies: fever, chills Respiratory: Denies: cough, dyspnea Cardiovascular: Reports: chest pain. Denies: palpitations, edema, syncope Gastrointestinal: Denies: abdominal pain, nausea, vomiting Genitourinary: Denies: dysuria, hematuria Musculoskeletal: Denies: back pain Skin: Denies: rash Neurological: Reports: vertigo. Denies: headache, weakness, numbness, paresthesias EKG Findings - EKG Results: EKG: interpreted by ODALIS, WNL, sinus rhythm (Rate 66 bpm), normal axis, normal QRS, normal ST/T, no acute changes - NC, Pacemaker, Normal: Normal tracing: normal tracing Past Medical History Past Medical History: Cancer, Chest Pain / Angina, COPD, GERD/Reflux, Hyperlipidemia, Hypertension, Liver Disease, Myocardial Infarction ([place]), Osteoarthritis (OA), Skin Disorder Additional Past Medical History / Comment(s): CHRONIC EAR INFECTION, BASAL SKIN CA LT EYE LID, [place] white symdrome, varicose veins, hernia, "Bacteria in my colon-diarrhea for 7-8 months", dark stools, fatty liver disease, acne on back, 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 Last Myocardial Infarction Date:: 1994 History of Any Multi-Drug Resistant Organisms: None Reported Past Surgical History: Adenoidectomy, Cardiac Ablation, Ear Surgery, Orthopedic Surgery, Tonsillectomy Additional Past Surgical History / Comment(s): TUMOR REMOED FROM RT EAR, LT KNEE surgery X 3, tubes in both ears, oral surgery Past Anesthesia/Blood Transfusion Reactions: No Reported Reaction Additional Past Anesthesia/Blood Transfusion Reaction / Comment(s): NEVER HAS HAD BLOOD TRANSFUSION Past Psychological History: Depression Smoking Status: Current every day smoker Past Alcohol Use History: Daily Past Drug Use History: Marijuana - Past Family History Sister(s) Family Medical History: No Reported History Mother Family Medical History: Cancer Additional Family Medical History / Comment(s): SKIN Brother(s) Family Medical History: Cancer, Pulmonary Embolus Additional Family Medical History / Comment(s): pancreas General Exam Limitations: no limitations General appearance: alert, in no apparent distress Head exam: Present: atraumatic, normocephalic Eye exam: Present: normal appearance. Absent: scleral icterus, conjunctival injection ENT exam: Present: normal oropharynx Neck exam: Present: normal inspection Respiratory exam: Present: normal lung sounds bilaterally. Absent: respiratory distress, wheezes, rales, rhonchi, stridor Cardiovascular Exam: Present: regular rate, normal rhythm, normal heart sounds. Absent: systolic murmur, diastolic murmur, rubs, gallop GI/Abdominal exam: Present: soft. Absent: distended, tenderness, guarding, rebound, rigid, mass Extremities exam: Present: normal inspection, normal capillary refill. Absent: pedal edema, calf tenderness Back exam: Present: normal inspection. Absent: CVA tenderness (R), CVA tenderness (L) Neurological exam: Present: alert Skin exam: Present: warm, dry, intact, normal color. Absent: rash Course Vital Signs 01/16/19 23:45 Temperature 97.9 F Pulse Rate 70 Respiratory 18 Rate Blood Pressure 147/93 O2 Sat by Pulse 95 Oximetry Disposition Clinical Impression: Chest pain, Meniere syndrome Disposition: HOME SELF-CARE Condition: Good Instructions (If sedation given, give patient instructions): Chest Pain (ED), Meniere Disease (ED) Additional Instructions: As we discussed, follow with the mail carrier and clerk. Also the ENT physician be consulted regarding the possibility of Mnire's disease. Return to the emergency department should any of the symptoms recur Is patient prescribed a controlled substance at d/c from ED?: No Referrals: Debra Ross MD [Primary Care Provider] - 1-2 days Sherif Canela MD [STAFF PHYSICIAN] - 1-2 days Zeeshan Lara MD [STAFF PHYSICIAN] - 1-2 days
--- NOTE | 2019-01-17 00:39 | XR ---
EXAMINATION TYPE: XR chest 2V DATE OF EXAM: 01/17/2019 COMPARISON: 05/01/2017 HISTORY: Chest pain TECHNIQUE: Frontal and lateral views of the chest are obtained. FINDINGS: Heart and mediastinum are normal. Lungs are clear. Diaphragm is normal. Bony thorax is nor mal. There are chest leads. IMPRESSION: Normal chest. No change.
[2019-01-17 00:56] LABS: Basophils # (A) 0.1 k/uL (0-0.2); Basophils % (A) 1 %; Eosinophils # (A) 0.2 k/uL (0-0.7); Eosinophils % (A) 2 %; HCT 41.7 % (39.0-53.0); HGB 14.2 gm/dL (13.0-17.5); Lymphocytes # (A) 1.5 k/uL (1.0-4.8); Lymphocytes % (A) 22 %; MCH 30.9 pg (25.0-35.0); MCHC 34.1 g/dL (31.0-37.0); MCV 90.6 fL (80.0-100.0); Mean Platelet Volume 6.4; Monocytes # (A) 0.4 k/uL (0-1.0); Monocytes % (A) 6 %; Neutrophils # (A) 4.8 k/uL (1.3-7.7); Neutrophils % (A) 67 %; Platelet Count 165 k/uL (150-450); RDW 12.4 % (11.5-15.5); WBC 7.1 k/uL (3.8-10.6)
[2019-01-17 01:01] LABS: INR 0.9 (<1.2)
[2019-01-17 01:02] LABS: Partial Thromboplastin Time 24.3 sec (22.0-30.0)
[2019-01-17 01:05] LABS: ALT 46 U/L (21-72); AST 31 U/L (17-59); African American GFR (CKD) >90 (>60 ml/min/1.73 sqM); Albumin 3.9 g/dL (3.5-5.0); Alkaline Phosphatase 50 U/L (38-126); Anion Gap 7 mmol/L; Blood Urea Nitrogen 17 mg/dL (9-20); Calcium 8.8 mg/dL (8.4-10.2); Carbon Dioxide 25 mmol/L (22-30); Chloride 106 mmol/L (98-107); Glucose 106 mg/dL (74-99); Potassium 3.9 mmol/L (3.5-5.1); Sodium 138 mmol/L (137-145); Total Bilirubin 0.2 mg/dL (0.2-1.3); Total Protein 6.5 g/dL (6.3-8.2)
[2019-01-17 01:59] VITALS: BP 129/88; PULSE 65; TEMP 97.8
== END 2019-01-17 01:55 | disposition home or self-care (01) ==
LOC: EC 23:37
DX: H81.09 Meniere's disease, unspecified ear (principal); R07.89 Other chest pain; K21.9 Gastro-esophageal reflux disease without esophagitis; I10 Essential (primary) hypertension; J44.9 Chronic obstructive pulmonary disease, unspecified; E78.5 Hyperlipidemia, unspecified; I25.2 Old myocardial infarction; F17.200 Nicotine dependence, unspecified, uncomplicated; Z79.899 Other long term (current) drug therapy; Z88.6 Allergy status to analgesic agent
CPT/HCPCS: 36415; 71046; 80053; 83735; 84484; 85025; 85610; 85730; 93005; 99285

== ENCOUNTER 2020-05-15 23:42 | Emergency (ER) | payer MEDICARE, OTHER ==
[2020-05-15 23:45] VITALS: TEMP 98.7
[2020-05-15 23:46] VITALS: BP 111/80; PULSE 86; RESP 18
--- NOTE | 2020-05-16 01:02 | ED ---
General Adult HPI - General Chief complaint: Chest Pain Stated complaint: Chest pain Time Seen by Provider: 05/15/20 23:43 Source: patient, EMS Mode of arrival: EMS Limitations: no limitations - History of Present Illness Initial comments: 49-year-old male patient apparently presented to emergency department for chest pain, symptoms started after being in police custody. I went into evaluate the patient he had eloped from the room. He did not return, I was unable to perform history or physical. - Related Data Home Medications Medication Instructions Recorded Confirmed HYDROcodone/APAP 10-325MG [[place] 1 tab PO Q6H PRN 12/23/14 05/01/17 10] raNITIdine HCL [Zantac] 75 mg PO DAILY 09/29/16 05/01/17 Propranolol [Inderal] 20 mg PO DAILY 02/01/17 05/01/17 Albuterol Inhaler (Mhu) [Ventolin 1 puff INHALATION BID PRN 03/11/17 05/01/17 Hfa Inhaler] Aspirin [Adult Low Dose Aspirin EC] 81 mg PO DAILY PRN 03/11/17 05/01/17 Atorvastatin [Lipitor] 20 mg PO DAILY 03/11/17 05/01/17 oxyCODONE HCL [OxyCONTIN] 30 mg PO Q12H 03/11/17 05/01/17 Previous Rx's Medication Instructions Recorded Meclizine [Antivert] 25 mg PO TID #15 tab 05/01/17 Allergies Allergy/AdvReac Type Severity Reaction Status Date / Time ibuprofen Allergy Swelling, Verified 05/01/17 10:58 ITCHING OF THROAT AND DIFFICULTY SWALLOWING Review of Systems ROS Statement: Those systems with pertinent positive or pertinent negative responses have been documented in the HPI. ROS Other: All systems not noted in ROS Statement are negative. 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 Last Myocardial Infarction Date:: 1994 History of Any Multi-Drug Resistant Organisms: None Reported Past Surgical History: Adenoidectomy, Cardiac Ablation, Ear Surgery, Orthopedic Surgery, Tonsillectomy Additional Past Surgical History / Comment(s): TUMOR REMOED FROM RT EAR, LT KNEE surgery X 3, tubes in both ears, oral surgery Past Anesthesia/Blood Transfusion Reactions: No Reported Reaction Additional Past Anesthesia/Blood Transfusion Reaction / Comment(s): NEVER HAS HAD BLOOD TRANSFUSION Past Psychological History: Depression Past Alcohol Use History: Daily Past Drug Use History: Marijuana - Past Family History Sister(s) Family Medical History: No Reported History Mother Family Medical History: Cancer Additional Family Medical History / Comment(s): SKIN Brother(s) Family Medical History: Cancer, Pulmonary Embolus Additional Family Medical History / Comment(s): pancreas General Exam Limitations: no limitations Course Vital Signs 05/15/20 23:42 Temperature 98.7 F Pulse Rate 86 Respiratory 18 Rate Blood Pressure 111/80 O2 Sat by Pulse 96 Oximetry Medical Decision Making - Medical Decision Making 49-year-old male patient apparently presented to the emergency department for chest pain after being arrested. I did review the EKG which showed sinus rhythm with supraventricular complexes. No obvious ST elevation or depression. I was unable to perform history or physical due to patient eloping from the department prior to me seeing him. Disposition Clinical Impression: Eloped from emergency department Disposition: Left W/O Being Seen by Phys Condition: Undetermined Referrals: Edgardo Garcia MD [Primary Care Provider] - 1-2 days
== END 2020-05-16 01:16 | disposition left against medical advice (07) ==
LOC: EC 23:42
DX: R07.9 Chest pain, unspecified (principal); J44.9 Chronic obstructive pulmonary disease, unspecified; K21.9 Gastro-esophageal reflux disease without esophagitis; E78.5 Hyperlipidemia, unspecified; I20.9 Angina pectoris, unspecified; I25.2 Old myocardial infarction; M19.90 Unspecified osteoarthritis, unspecified site; Z79.899 Other long term (current) drug therapy; Z88.6 Allergy status to analgesic agent; Z85.828 Personal history of other malignant neoplasm of skin; Z53.9 Procedure and treatment not carried out, unspecified reason
CPT/HCPCS: 93005; 99284